=== PATIENT | male | born 1990 | race African-American/Black ===

== ENCOUNTER 2020-06-01 11:31 | Emergency (ER) | payer MEDICAID ==
[~2020-06-01] VITALS: Ht 177.8 cm; Wt 165.0 kg
[2020-06-01] MEDS ORDERED: KETOROLAC 60MG/2ML VIAL IM ONE (15:15)
[2020-06-01 16:15] VITALS: BP 139/83
[2020-06-16] MEDS ORDERED: AMLO10TA4 MT (12:38)
[2020-06-16] MEDS ORDERED: ATOR20TA MT (12:38)
== END 2020-06-01 16:49 | disposition home or self-care (01) ==
LOC: ER 11:31
DX: M25.562 Pain in left knee (principal); M25.561 Pain in right knee; I49.9 Cardiac arrhythmia, unspecified
CPT/HCPCS: 73562; 93005; 96372; 99283; J1885; L1830

== ENCOUNTER 2020-06-22 03:59 | Emergency (ER) | payer MEDICAID ==
[~2020-06-22] VITALS: Ht 182.9 cm; Wt 177.0 kg
[~2020-06-22 03:59] MED LIST: AMLO10TA4 MT; ATOR20TA MT
[2020-06-22 04:55] VITALS: BP 122/68
== END 2020-06-22 06:15 | disposition home or self-care (01) ==
LOC: ER 03:59
DX: G47.30 Sleep apnea, unspecified (principal); E66.01 Morbid (severe) obesity due to excess calories; F17.290 Nicotine dependence, other tobacco product, uncomplicated; F12.10 Cannabis abuse, uncomplicated
CPT/HCPCS: 93005; 99283